=== PATIENT | male | born 1935 | race Caucasian/White ===

== ENCOUNTER 2021-01-22 16:15 | Emergency (ER) | payer OTHER ==
[~2021-01-22] VITALS: Ht 177.8 cm; Wt 72.6 kg
[2021-01-22 18:24] LABS: Urine Bacteria NONE SEEN /hpf (None Seen); Urine Blood 3+ /uL (Negative); Urine WBC 3673 /hpf (0 - 3); Urine WBC Clumps PRESENT /hpf (None Seen)
[2021-01-22 19:43] VITALS: BP 112/56
== END 2021-01-22 22:15 | disposition home or self-care (01) ==
LOC: ER 16:15 → EDBD 16:15 → ER 22:12
DX: Z46.6 Encounter for fitting and adjustment of urinary device (principal); N39.0 Urinary tract infection, site not specified; F03.90 Unspecified dementia, unspecified severity, without behavioral disturbance, psychotic disturbance, mood disturbance, and anxiety; Z88.8 Allergy status to other drugs, medicaments and biological substances
CPT/HCPCS: 51702; 81001; 87086; 87088; 87186

== ENCOUNTER 2021-05-27 11:37 | Inpatient (IN) | payer OTHER ==
[~2021-05-27] VITALS: Ht 170.2 cm; Wt 95.4 kg
[2021-05-27] MEDS ORDERED: methylPREDNISolone SOD SUCC 125 MG/2 ML VL IV ONE (12:00)
[2021-05-27 12:33] LABS: Urine Bacteria NONE SEEN /hpf (None Seen); Urine Blood 2+ /uL (Negative); Urine Hyaline Cast MOD /lpf (0 - 2); Urine Mucus FEW (None Seen); Urine Specific Gravity 1.024 (1.001-1.035); Urine WBC 83 /hpf (0 - 3)
[2021-05-27 12:45] LABS: Basophils # (auto) 0 10 ^3/uL (0-0.2); Basophils % (auto) 0.3 % (0.0-2.0); Eosinophils # (auto) 0 10 ^3/uL (0-0.8); Eosinophils % (auto) 0.3 % (0.0-7.0); Hematocrit 30.2 % (41.0-53.0); Hemoglobin 10.9 g/dL (13.5-17.5); Lymphocytes # (auto) 1.5 10 ^3/uL (0.4-5.4); Lymphocytes % (auto) 17.1 % (10.0-50.0); Mean Corpuscular Volume 91.8 fL (80.0-100.0); Monocytes # (auto) 0.6 10 ^3/uL (0-1.3); Monocytes % (auto) 7.1 % (0.0-12.0); Neutrophils # (auto) 6.7 10 ^3/uL (1.6-8.6); Neutrophils % (auto) 75.2 % (37.0-80.0); Red Blood Cells 3.29 10^6/uL (4.5-5.90); Red Cell Distribution Width 13.5 % (11.8-14.3); White Blood Cell 8.9 10^3/uL (4.4-10.8)
[2021-05-27 13:11] LABS: Albumin 2.7 g/dL (3.4-5.0); Anion Gap 7 (5-15); Blood Urea Nitrogen 31 mg/dL (7-18); Calcium 8.1 mg/dL (8.5-10.1); Carbon Dioxide 22 mmol/L (21-32); Chloride 101 mmol/L (98-107); Glucose 87 mg/dL (74-106); Potassium 4.5 mmol/L (3.5-5.1); Sodium 130 mmol/L (136-145)
[2021-05-27 13:18] LABS: Alanine Aminotransferase 15 U/L (16-61); Alkaline Phosphatase 53 U/L (45-117); Aspartate Aminotransferase 20 U/L (15-37); BUN/Creatinine Ratio 28.7; Bilirubin, Total 0.7 mg/dL (0.2-1.0); GFR African American 84 mL/min; GFR Non-African American 69 mL/min; Total Protein 5.7 g/dL (6.4-8.2)
[2021-05-27] MEDS ORDERED: AZITHROMYCIN 500MG/ 250ML 250 ML IV ONE (14:00)
[2021-05-27] MEDS ORDERED: cefTRIAXone 1GM/50ML D5W 50 ML IV ONE (14:00)
[2021-05-27] MEDS ORDERED: NITROGLYCERIN 0.4 MG SL TAB SL PRN (15:00)
[2021-05-27] MEDS ORDERED: MORPHINE SULF INJ 2 MG/ML SYRINGE 1ML IV PRN (15:00)
[2021-05-27] MEDS ORDERED: HALOPERIDOL LACTATE 5 MG/ML INJ VIAL IM ONE (16:30)
[2021-05-28] VITALS (8 sets, daily range): BP systolic 115–161; BP diastolic 48–88
[2021-05-28] MEDS ORDERED: LORazepam 0.5 MG TAB PO PRN (00:30)
[2021-05-28] MEDS ORDERED: DOCUSATE SOD 100 MG CAP PO PRN (00:30)
[2021-05-28] MEDS ORDERED: NITROGLYCERIN 0.4 MG SL TAB SL PRN (00:30)
[2021-05-28] MEDS ORDERED: HYDROcodone-ACET 5/325MG TAB PO PRN (00:30)
[2021-05-28] MEDS ORDERED: MORPHINE SULF INJ 2 MG/ML SYRINGE 1ML IV PRN ×2 (00:30)
[2021-05-28] MEDS ORDERED: ALUM & MAG HYDROX-SIMETH LIQ(MAALOX) 30 ML PO PRN (00:30)
[2021-05-28] MEDS ORDERED: ONDANSETRON HCL 4 MG/2 ML VIAL IV PRN (00:30)
[2021-05-28] MEDS ORDERED: ACETAMINOPHEN 325 MG TAB PO PRN (00:30)
[2021-05-28] MEDS ORDERED: SODIUM CHLORIDE 0.9% 1,000 ML IV SCH (00:30)
[2021-05-28] MEDS ORDERED: ALBUTEROL SULF 2.5 MG/0.5ML(0.5%) NEB SOLN NEB PRN (00:45)
[2021-05-28] MEDS ORDERED: IPRATROPIUM BROM 0.5 MG/2.5ML INH SOL NEB PRN (02:00)
[2021-05-28] MEDS ORDERED: IPRATROPIUM BROM 0.5 MG/2.5ML INH SOL NEB SCH (02:00)
[2021-05-28] MEDS: CLINDAMYCIN 600MG IV 50 ML IV SCH ×3 (06:48→22:17)
[2021-05-28 07:33] LABS: Cholesterol 111 mg/dL (< 200); HDL Cholesterol 68 mg/dL (40-59); LDL Cholesterol 33 mg/dL (< 100); Triglycerides 48 mg/dL (< 150)
[2021-05-28] MEDS: ENOXAPARIN SOD 40 MG/0.4 ML SYRINGE SC SCH (09:19)
[2021-05-28] MEDS: ASPirin 81 mg TAB PO SCH (09:19)
[2021-05-28] MEDS: cefTRIAXone 1GM/50ML D5W 50 ML IV SCH (09:19)
[2021-05-28] MEDS: risperiDONE 1 MG TAB PO SCH (09:20)
[2021-05-28 09:31] LABS: Urine Bacteria NONE SEEN /hpf (None Seen); Urine Blood Negative /uL (Negative); Urine Specific Gravity 1.026 (1.001-1.035); Urine WBC 10 /hpf (0 - 3)
[2021-05-28 09:45] LABS: Alcohol, Urine < 3.0 mg/dL (0-10); Amphetamine Screen, Urine NEGATIVE (NEGATIVE); Barbiturate Scree,Urine NEGATIVE (NEGATIVE); Benzodiazephine Screen, Urine POSITIVE (NEGATIVE); Cannabinoid Screen, Urine POSITIVE (NEGATIVE); Cocaine Screen, Urine NEGATIVE (NEGATIVE); Opiate Scree,Urine NEGATIVE (NEGATIVE); Phencyclidine Screen, Urine NEGATIVE (NEGATIVE)
[2021-05-28] MEDS ORDERED: RISP1TAB63 PO (10:45)
[2021-05-28] MEDS ORDERED: LISI-716 PO (10:45)
[2021-05-28] MEDS ORDERED: FINA5TAB4 PO (10:45)
[2021-05-28] MEDS ORDERED: LACT10SO3 PO (10:45)
[2021-05-28] MEDS ORDERED: IBUP600T27 PO (10:45)
[2021-05-28] MEDS ORDERED: SENN1TAB14 PO (10:45)
[2021-05-28] MEDS ORDERED: QUET25TA46 PO (10:45)
[2021-05-28] MEDS ORDERED: OMEP20TA PO (10:45)
[2021-05-28] MEDS ORDERED: PROC10TA2 PO (10:45)
[2021-05-28] MEDS ORDERED: TERA2CAP45 PO (10:45)
[2021-05-28] MEDS ORDERED: DIPH25CA46 PO (10:45)
[2021-05-28] MEDS ORDERED: NITR0.4S29 SL (10:45)
[2021-05-28] MEDS ORDERED: QUET100T46 PO (10:45)
[2021-05-28] MEDS ORDERED: ALPR1TAB7 PO (10:45)
[2021-05-28] MEDS ORDERED: ASPI-543 PO (10:45)
[2021-05-28] MEDS ORDERED: TEMA30CA PO (10:45)
[2021-05-28] MEDS ORDERED: TAMS0.4C36 PO (10:45)
[2021-05-28 12:48] LABS: BUN/Creatinine Ratio 33.7; Calcium 8.7 mg/dL (8.5-10.1); Potassium 4.2 mmol/L (3.5-5.1)
[2021-05-28] MEDS ORDERED: IOHEXOL 350 MG/ML 100ML IJ ONE (13:06)
[2021-05-28 13:08] LABS: Magnesium 2.2 mg/dL (1.6-2.6)
[2021-05-28] MEDS: hydrALAZINE HCL 20 MG/ML VL IV PRN (17:35)
[2021-05-28] MEDS: TAMSULOSIN HYDROCHLORIDE 0.4 MG CAP PO SCH (17:35)
[2021-05-28] MEDS: ATORVASTATIN 20 MG TAB PO SCH (22:16)
[2021-05-29] MEDS ORDERED: CARVEDILOL 12.5 MG TAB PO ONE (02:30)
[2021-05-29] MEDS ORDERED: dilTIAZem 25 MG/5 ML VIAL IV ONE (03:15)
[2021-05-29 05:00] VITALS: BP 116/75
[2021-05-29] MEDS: CLINDAMYCIN 600MG IV 50 ML IV SCH (06:02)
[2021-05-29 08:00] VITALS: BP 131/72
[2021-05-29 09:00] VITALS: BP 131/72
[2021-05-29] MEDS: POLYETHYLENE GLYCOL 17 GM PWDR PO SCH (10:00)
[2021-05-29] MEDS: cefTRIAXone 1GM/50ML D5W 50 ML IV SCH (10:08)
[2021-05-29] MEDS: ASPirin 81 mg TAB PO SCH (10:08)
[2021-05-29] MEDS: CARVEDILOL 12.5 MG TAB PO SCH ×2 (10:09→21:52)
[2021-05-29] MEDS: risperiDONE 1 MG TAB PO SCH (10:10)
[2021-05-29] MEDS: ENOXAPARIN SOD 40 MG/0.4 ML SYRINGE SC SCH (10:10)
[2021-05-29] MEDS ORDERED: VANCOMYCIN PER PHARMACY 0 MG IV SCH (12:00)
[2021-05-29 13:00] VITALS: BP 114/62
[2021-05-29] MEDS: VANCOMYCIN 750mg/250ml 250 ML IV SCH (13:01)
[2021-05-29] MEDS: PIPERACILLIN-TAZOB 3.375GM 100 ML IV SCH ×2 (14:34→21:52)
[2021-05-29 17:00] VITALS: BP 135/74
[2021-05-29] MEDS: TAMSULOSIN HYDROCHLORIDE 0.4 MG CAP PO SCH (18:18)
[2021-05-29 21:43] VITALS: BP 153/79
[2021-05-29] MEDS: ATORVASTATIN 20 MG TAB PO SCH (21:52)
[2021-05-30] MEDS: VANCOMYCIN 750mg/250ml 250 ML IV SCH ×2 (01:36→12:38)
[2021-05-30 04:40] VITALS: BP 139/82
[2021-05-30 05:30] LABS: Basophils # (auto) 0 10 ^3/uL (0-0.2); Basophils % (auto) 0.2 % (0.0-2.0); Eosinophils # (auto) 0.1 10 ^3/uL (0-0.8); Eosinophils % (auto) 0.7 % (0.0-7.0); Hematocrit 34.4 % (41.0-53.0); Hemoglobin 12.2 g/dL (13.5-17.5); Lymphocytes # (auto) 1.9 10 ^3/uL (0.4-5.4); Lymphocytes % (auto) 20.4 % (10.0-50.0); Mean Corpuscular Hemoglobin 32.4 pg (28.0-32.0); Mean Corpuscular Hgb Conc. 35.3 g/dL (32.0-36.0); Mean Corpuscular Volume 91.8 fL (80.0-100.0); Monocytes # (auto) 1.2 10 ^3/uL (0-1.3); Monocytes % (auto) 12.8 % (0.0-12.0); Neutrophils # (auto) 6.1 10 ^3/uL (1.6-8.6); Neutrophils % (auto) 65.9 % (37.0-80.0); Nucleated Red Blood Cells % 0.2 %; Red Blood Cells 3.75 10^6/uL (4.5-5.90); White Blood Cell 9.3 10^3/uL (4.4-10.8)
[2021-05-30 05:38] LABS: Calcium 8.2 mg/dL (8.5-10.1); Potassium 3.6 mmol/L (3.5-5.1)
[2021-05-30] MEDS: PIPERACILLIN-TAZOB 3.375GM 100 ML IV SCH ×3 (05:41→21:30)
[2021-05-30 05:43] LABS: BUN/Creatinine Ratio 33.3; Bilirubin, Total 0.7 mg/dL (0.2-1.0); Total Protein 6.5 g/dL (6.4-8.2)
[2021-05-30 09:00] VITALS: BP 139/79
[2021-05-30] MEDS: ASPirin 81 mg TAB PO SCH (09:08)
[2021-05-30] MEDS: risperiDONE 1 MG TAB PO SCH (09:09)
[2021-05-30] MEDS: CARVEDILOL 12.5 MG TAB PO SCH ×2 (09:10→22:00)
[2021-05-30] MEDS: ENOXAPARIN SOD 40 MG/0.4 ML SYRINGE SC SCH (09:10)
[2021-05-30] MEDS: POLYETHYLENE GLYCOL 17 GM PWDR PO SCH (09:10)
[2021-05-30 12:45] VITALS: BP 160/77
[2021-05-30] MEDS: hydrALAZINE HCL 20 MG/ML VL IV PRN ×2 (12:48→22:42)
[2021-05-30 15:35] LABS: INR 1.08 (0.9-1.15)
[2021-05-30 16:37] VITALS: BP 149/71
[2021-05-30] MEDS: TAMSULOSIN HYDROCHLORIDE 0.4 MG CAP PO SCH (17:24)
[2021-05-30 22:00] VITALS: BP 153/84
[2021-05-30] MEDS: ATORVASTATIN 20 MG TAB PO SCH (22:00)
[2021-05-31 01:11] LABS: Basophils # (auto) 0.1 10 ^3/uL (0-0.2); Basophils % (auto) 1.1 % (0.0-2.0); Eosinophils # (auto) 0.1 10 ^3/uL (0-0.8); Eosinophils % (auto) 1.2 % (0.0-7.0); Hematocrit 37.3 % (41.0-53.0); Lymphocytes # (auto) 1.7 10 ^3/uL (0.4-5.4); Lymphocytes % (auto) 15.4 % (10.0-50.0); Mean Corpuscular Hemoglobin 32.2 pg (28.0-32.0); Mean Corpuscular Hgb Conc. 34.8 g/dL (32.0-36.0); Mean Corpuscular Volume 92.7 fL (80.0-100.0); Monocytes # (auto) 1.3 10 ^3/uL (0-1.3); Monocytes % (auto) 12.3 % (0.0-12.0); Neutrophils # (auto) 7.5 10 ^3/uL (1.6-8.6); Red Blood Cells 4.02 10^6/uL (4.5-5.90); Red Cell Distribution Width 13.1 % (11.8-14.3); White Blood Cell 10.8 10^3/uL (4.4-10.8)
[2021-05-31] MEDS: VANCOMYCIN 750mg/250ml 250 ML IV SCH (01:13)
[2021-05-31 05:00] VITALS: BP 148/65
[2021-05-31] MEDS: PIPERACILLIN-TAZOB 3.375GM 100 ML IV SCH (06:03)
[2021-05-31] MEDS: ENOXAPARIN SOD 40 MG/0.4 ML SYRINGE SC SCH (07:24)
[2021-05-31] MEDS ORDERED: LIDOCAINE VISCOUS 2% 15ML UD ONE (08:42)
[2021-05-31] MEDS ORDERED: SODIUM CHLORIDE LOCK 10 ML ONE (08:42)
[2021-05-31] MEDS ORDERED: diphenhdrAMINE HCL 50 MG/1 ML VL ONE (08:43)
[2021-05-31 09:00] VITALS: BP 158/116
[2021-05-31] MEDS: ASPirin 81 mg TAB PO SCH (10:00)
[2021-05-31] MEDS: CARVEDILOL 12.5 MG TAB PO SCH ×2 (10:00→23:35)
[2021-05-31] MEDS: risperiDONE 1 MG TAB PO SCH (10:00)
[2021-05-31] MEDS: POLYETHYLENE GLYCOL 17 GM PWDR PO SCH (10:00)
[2021-05-31] MEDS: MIDAZOLAM HCL 5 MG/ML-1ML VIAL ONE ×2 (10:32→10:38)
[2021-05-31] MEDS: fentaNYL CITRATE 100 MCG/2 ML VL ONE ×2 (10:32→10:38)
[2021-05-31 13:00] VITALS: BP 167/75
[2021-05-31] MEDS ORDERED: VANCOMYCIN 1GM/250ML 250 ML IV SCH (13:00)
[2021-05-31] MEDS: MEROPENEM 1GM IVPB 100 ML IV SCH ×2 (15:40→23:35)
[2021-05-31] MEDS: TAMSULOSIN HYDROCHLORIDE 0.4 MG CAP PO SCH (16:02)
[2021-05-31 16:29] VITALS: BP 142/79
[2021-05-31 21:40] VITALS: BP 137/77
[2021-05-31] MEDS: PANTOPRAZOLE 40 MG/10 ML VIAL INJ IV SCH (23:35)
[2021-05-31] MEDS: ATORVASTATIN 20 MG TAB PO SCH (23:35)
[2021-06-01 05:00] VITALS: BP 134/74
[2021-06-01] MEDS: MEROPENEM 1GM IVPB 100 ML IV SCH ×3 (05:05→22:26)
[2021-06-01 08:15] VITALS: BP 153/74
[2021-06-01 09:00] VITALS: BP 153/74
[2021-06-01] MEDS: ENOXAPARIN SOD 40 MG/0.4 ML SYRINGE SC SCH (10:20)
[2021-06-01] MEDS: PANTOPRAZOLE 40 MG/10 ML VIAL INJ IV SCH ×2 (10:20→22:26)
[2021-06-01] MEDS ORDERED: HYDROcodone-ACET 5/325MG TAB GT PRN (10:45)
[2021-06-01] MEDS ORDERED: LORazepam 0.5 MG TAB GT PRN (10:45)
[2021-06-01] MEDS ORDERED: ALUM & MAG HYDROX-SIMETH LIQ(MAALOX) 30 ML GT PRN (10:45)
[2021-06-01] MEDS: ASPirin 81 mg TAB GT SCH (11:39)
[2021-06-01] MEDS: ATORVASTATIN 20 MG TAB GT SCH ×2 (11:39→22:26)
[2021-06-01] MEDS: CARVEDILOL 12.5 MG TAB GT SCH ×2 (11:39→22:25)
[2021-06-01] MEDS: POLYETHYLENE GLYCOL 17 GM PWDR GT SCH (11:39)
[2021-06-01] MEDS: risperiDONE 1 MG TAB GT SCH (11:40)
[2021-06-01 13:00] VITALS: BP 119/69
[2021-06-01] MEDS ORDERED: Jevity 1.2 Cal/Fiber 1 Liter GT SCH (13:30)
[2021-06-01 17:35] VITALS: BP 139/65
[2021-06-01] MEDS: TAMSULOSIN HYDROCHLORIDE 0.4 MG CAP PO SCH (17:46)
[2021-06-01 22:00] VITALS: BP 128/74
[2021-06-02] MEDS: MEROPENEM 1GM IVPB 100 ML IV SCH ×2 (05:14→14:17)
[2021-06-02 08:30] VITALS: BP 124/71
[2021-06-02] MEDS: ENOXAPARIN SOD 40 MG/0.4 ML SYRINGE SC SCH (09:26)
[2021-06-02] MEDS: ASPirin 81 mg TAB GT SCH (09:26)
[2021-06-02] MEDS: POLYETHYLENE GLYCOL 17 GM PWDR GT SCH (09:26)
[2021-06-02] MEDS: PANTOPRAZOLE 40 MG/10 ML VIAL INJ IV SCH (09:26)
[2021-06-02] MEDS: CARVEDILOL 12.5 MG TAB GT SCH (09:27)
[2021-06-02] MEDS: risperiDONE 1 MG TAB GT SCH (09:28)
[2021-06-02 12:35] VITALS: BP 137/72
[2021-06-02 15:06] VITALS: BP 124/71
[2021-06-02] MEDS: TAMSULOSIN HYDROCHLORIDE 0.4 MG CAP PO SCH (16:49)
[2021-06-02 16:56] VITALS: BP 129/67
== END 2021-06-02 20:00 | disposition hospice, inpatient (51) | DRG 871 ==
LOC: ER 11:37 → EDBD 11:37 → TELE 14:47 → TELE-WESTW 20:15
PROVIDERS: ADMIT Hospitalist; ATTEND Internal Medicine
PROC: 0DH63UZ Insertion of Feeding Device into Stomach, Percutaneous Approach (ICD-10-PCS; 2021-05-31)
PROC: 0DB68ZX Excision of Stomach, Via Natural or Artificial Opening Endoscopic, Diagnostic (ICD-10-PCS; principal; 2021-05-31 10:30)
DX: A41.9 Sepsis, unspecified organism (principal); J69.0 Pneumonitis due to inhalation of food and vomit; J96.00 Acute respiratory failure, unspecified whether with hypoxia or hypercapnia; G93.41 Metabolic encephalopathy; I50.33 Acute on chronic diastolic (congestive) heart failure; I69.354 Hemiplegia and hemiparesis following cerebral infarction affecting left non-dominant side; N39.0 Urinary tract infection, site not specified; I69.322 Dysarthria following cerebral infarction; R13.10 Dysphagia, unspecified; Z20.822 Contact with and (suspected) exposure to COVID-19; Z66 Do not resuscitate; F03.90 Unspecified dementia, unspecified severity, without behavioral disturbance, psychotic disturbance, mood disturbance, and anxiety; B95.62 Methicillin resistant Staphylococcus aureus infection as the cause of diseases classified elsewhere; I48.91 Unspecified atrial fibrillation; E78.5 Hyperlipidemia, unspecified; B96.5 Pseudomonas (aeruginosa) (mallei) (pseudomallei) as the cause of diseases classified elsewhere; D64.9 Anemia, unspecified; F32.9 Major depressive disorder, single episode, unspecified; I11.0 Hypertensive heart disease with heart failure; I70.0 Atherosclerosis of aorta; K20.90 Esophagitis, unspecified without bleeding; K29.70 Gastritis, unspecified, without bleeding; K29.80 Duodenitis without bleeding; N40.0 Benign prostatic hyperplasia without lower urinary tract symptoms
CPT/HCPCS: 36415; 71045; 71275; 80048; 80053; 80061; 80202; 80307; 81001; 82565; 83036; 83605; 83735; 83880; 84443; 84484; 85025; 85049; 85379; 85610; 86850; 86900; 86901; 87040; 87077; 87081; 87086; 87088; 87147; 87186; 87426; 92610; 93005; 93306; 93970; 96365; 96366; 96368; 96375; 97110; 97163; 97530; 99291; C9113; G0378; J0696; J2185; J2250; J2543; J3490

== ENCOUNTER 2021-06-15 04:23 | Emergency (ER) | payer OTHER ==
[~2021-06-15] VITALS: Ht 188 cm; Wt 104.3 kg
[~2021-06-15 04:23] MED LIST: ALPR1TAB7 PO; ASPI-543 PO; DIPH25CA46 PO; FINA5TAB4 PO; IBUP600T27 PO; LACT10SO3 PO; LISI-716 PO; NITR0.4S29 SL; OMEP20TA PO; PROC10TA2 PO; QUET100T46 PO; QUET25TA46 PO; RISP1TAB63 PO; SENN1TAB14 PO; TAMS0.4C36 PO; TEMA30CA PO; TERA2CAP45 PO
[2021-06-15] MEDS ORDERED: GASTROGRAFIN 30 ML SOL ONE ×2 (05:33→09:55)
[2021-06-15] MEDS ORDERED: SODIUM CHLORIDE 0.9% 1,000 ML IV SCH (07:15)
[2021-06-15] MEDS ORDERED: ONDANSETRON HCL 4 MG/2 ML VIAL IV PRN (07:15)
[2021-06-15 07:29] LABS: Basophils # (auto) 0.1 10 ^3/uL (0-0.2); Basophils % (auto) 0.9 % (0.0-2.0); Eosinophils # (auto) 0.3 10 ^3/uL (0-0.8); Eosinophils % (auto) 3.1 % (0.0-7.0); Hematocrit 38.3 % (41.0-53.0); Hemoglobin 13.7 g/dL (13.5-17.5); Lymphocytes # (auto) 2.1 10 ^3/uL (0.4-5.4); Lymphocytes % (auto) 24.3 % (10.0-50.0); Mean Corpuscular Hemoglobin 32.1 pg (28.0-32.0); Mean Corpuscular Hgb Conc. 35.7 g/dL (32.0-36.0); Monocytes # (auto) 0.6 10 ^3/uL (0-1.3); Monocytes % (auto) 7.4 % (0.0-12.0); Neutrophils # (auto) 5.4 10 ^3/uL (1.6-8.6); Neutrophils % (auto) 64.3 % (37.0-80.0); Nucleated Red Blood Cells % 0.1 %; Red Blood Cells 4.26 10^6/uL (4.5-5.90); Red Cell Distribution Width 13.4 % (11.8-14.3); White Blood Cell 8.4 10^3/uL (4.4-10.8)
[2021-06-15 07:45] LABS: Calcium 8.7 mg/dL (8.5-10.1); Potassium 4.4 mmol/L (3.5-5.1)
[2021-06-15 07:46] LABS: INR 0.98 (0.9-1.15); Partial Thromboplastin Time 27.1 sec (23.0-31.2)
[2021-06-15 07:48] LABS: BUN/Creatinine Ratio 23.9; Bilirubin, Total 0.5 mg/dL (0.2-1.0); Total Protein 7.1 g/dL (6.4-8.2)
[2021-06-15] MEDS ORDERED: PANTOPRAZOLE 40 MG/10 ML VIAL INJ IV SCH (10:00)
[2021-06-15] MEDS ORDERED: LISI-285 PO (10:05)
[2021-06-15] MEDS ORDERED: MORP15TA PO (10:05)
[2021-06-15 13:43] VITALS: BP 125/83
[2021-06-15] MEDS ORDERED: MORP20SO17 PO (16:10)
== END 2021-06-15 15:12 | disposition home or self-care (01) ==
LOC: ER 04:23 → EDBD 04:23 → OVERFLOW 07:01 → UNDOADMIN 07:01 → ER 15:12
PROC: 0T9B70Z Drainage of Bladder with Drainage Device, Via Natural or Artificial Opening (ICD-10-PCS; principal; 2021-06-15)
DX: K94.23 Gastrostomy malfunction (principal); F03.90 Unspecified dementia, unspecified severity, without behavioral disturbance, psychotic disturbance, mood disturbance, and anxiety; E78.5 Hyperlipidemia, unspecified; Z86.73 Personal history of transient ischemic attack (TIA), and cerebral infarction without residual deficits; Z79.899 Other long term (current) drug therapy; Z88.8 Allergy status to other drugs, medicaments and biological substances; Z20.822 Contact with and (suspected) exposure to COVID-19
CPT/HCPCS: 36415; 74018; 80053; 85025; 85610; 85730; 87426; 96361; 96374; 99285; C9113; Q9963